=== PATIENT | female | born 1935 | race Asian ===

== ENCOUNTER 2018-02-05 12:26 | Emergency (ER) | payer MEDICARE, OTHER ==
[~2018-02-05] VITALS: Ht 154.9 cm; Wt 54.4 kg
[2018-02-05 12:36] VITALS: BP 149/69
[2018-02-05] MEDS ORDERED: Lidocaine 1% MPF 10mg/ml 5ml IM ONE (12:45)
[2018-02-05] MEDS ORDERED: Lidocaine 1% MPF 10mg/ml 5ml ONE (12:50)
--- NOTE | 2018-02-05 13:07 | Emergency Room Report ---
History of Present Illness General Chief Complaint: Multiple Trauma/Fall Source: Patient Present Illness HPI Patient is an 82-year-old female brought in by son after witnessed fall. Patient poorly had prior history of CVA and has had several falls. Patient was noted to have residual left-sided weakness. Patient fell onto a bathtub. As she sustained a laceration to her scalp. Patient reportedly had vaccine for tetanus approximately 2 months ago. The patient did not lose consciousness. The patient normally walks with a walker or with a Special cane. The patient denies any complaints of pain at this time. Allergies: Coded Allergies: No Known Allergies (Unverified , 02/05/18) Patient History Past Medical History: see triage record Reviewed Nursing Documentation: PMH: Agreed; PSxH: Agreed Nursing Documentation-PMH Past Medical History: No History, Except For Hx Hypertension: Yes Hx Cerebrovascular Accident: Yes - L sided weakness Review of Systems All Other Systems: negative except mentioned in HPI Physical Exam Vital Signs Date Time Temp Pulse Resp B/P (MAP) Pulse Ox O2 Delivery O2 Flow Rate FiO2 02/05/18 12:24 73 16 134/72 97 Room Air 02/05/18 12:36 98.1 98.1 General Appearance: well appearing, no apparent distress, alert, Chronically Ill Head: normocephalic ENT: hearing grossly normal, normal voice Neck: full range of motion, supple Respiratory: no respiratory distress, speaking full sentences Musculoskeletal: no calf tenderness Neurologic: normal gait Psychiatric: mood/affect normal Skin: no rash, laceration - scalp laceration, 2 cm and 1 cm linear Procedures Laceration/Wound Repair Laceration/Wound Repair : Consent: Verbal Wound Location: head Wound's Depth, Shape: superficial Wound Length (cm): 2 Wound Explored: clean Irrigated w/ Saline (ccs): 60 Anesthesia: 1% Lidocaine Volume Anesthetic (ccs): 5 Wound Debrided: minimal Wound Repaired With: william - 5 Patient Tolerated: Well Medical Decision Making Diagnostic Impression: Primary Impression: Fall Additional Impressions: Scalp laceration History of CVA (cerebrovascular accident) ER Course Patient presented after fall. Differential diagnosis included was not limited to neck fracture, CVA, close head injury, syncopal episode, basilar ischemia. Because of complexity of patient's case imaging studies were ordered.The patient's lacerations are closed with skin william. The CT of the head read by radiology showed atrophic changes without evident intracranial hemorrhage or fracture.The patient presented be stable for outpatient observation.The patient is advised to follow up with primary care doctor in 1-2 days. Patient is advised to return if any worsening condition or if any changes in status that are concerning. This report is dictated with [employer] patient access registrar software which may occasionally lead to discrepancies related to use of this software. Last Vital Signs Date Time Temp Pulse Resp B/P (MAP) Pulse Ox O2 Delivery O2 Flow Rate FiO2 02/05/18 12:36 98.1 69 20 149/69 97 Room Air 98.1 Status: improved Disposition: HOME, SELF-CARE Condition: Stable Scripts Bacitracin Zinc* (BACITRACIN ZINC*) 1 Each Packet 1 APPLIC TOPIC THREE TIMES A DAY, #30 PACKET Prov: Ryan Glynn MD 02/05/18 Acetaminophen* (ACETAMINOPHEN EXTRA STRENGTH*) 500 Mg Tablet 500 MG ORAL Q8H PRN for Fever/Headache/Mild Pain, #30 TAB Prov: Ryan Glynn MD 02/05/18 Ryan Glynn MD Feb 05, 2018 13:07
[2018-02-05] MEDS ORDERED: ACETAMINOPHEN500 M3 ORAL (14:02)
[2018-02-05] MEDS ORDERED: BACITRACIN ZIN1 EACH TOPIC (14:02)
--- NOTE | 2018-02-05 14:16 | Diagnostic Imaging Report ---
Indication: Left-sided weakness, witnessed fall, scalp laceration Technique: spiral acquisitions obtained through the brain. Angled axial and coronal 5 x 5 mm slices were reconstructed. No IV contrast utilized. Radiation dose was minimized using automated exposure control Total dose length product 1344.24 mGycm. CTDIvol(s) 70.38 mGy Comparison: none FINDINGS: No acute hemorrhage or edema. No mass effect or midline shift. There is age-related enlargement of the ventricles and extra axial CSF spaces. There is periventricular deep white matter ischemic change. Normal perez-white differentiation. Visualized orbits are unremarkable. Visualized sinuses are unremarkable. Intact calvarium. Surgical william are seen reducing left frontal scalp laceration as well as a second high parietal scalp laceration near the vertex. Old lacunar infarct is seen in the right basal ganglia region, extending into the dudley radiata. The mastoids are clear. IMPRESSION: Chronic and age-related changes. Negative for acute intracranial bleed or mass effect Evidence of left-sided scalp soft tissue injury Negative for acute intracranial bleed or mass effect Chronic and age-related changes, as described The CT scanner at [facility] is accredited by the [employer] and the scans are performed using protocols designed to limit radiation exposure to as low as reasonably achievable to attain images of sufficient resolution adequate for diagnostic evaluation
[2018-02-05 14:33] VITALS: BP 132/76
== END 2018-02-05 14:35 | disposition home or self-care (01) ==
LOC: EDBD 12:26 → EMR 12:48
DX: S01.01XA Laceration without foreign body of scalp, initial encounter (principal); W19.XXXA Unspecified fall, initial encounter; Y92.002 Bathroom of unspecified non-institutional (private) residence as the place of occurrence of the external cause; I69.354 Hemiplegia and hemiparesis following cerebral infarction affecting left non-dominant side; I10 Essential (primary) hypertension
CPT/HCPCS: 70450; 99282